=== PATIENT | female | born 1980 | race Two or more races ===

== ENCOUNTER 2017-07-09 15:37 | Emergency (ER) | payer OTHER, MEDICAID ==
[~2017-07-09] VITALS: Ht 182.9 cm; Wt 84.0 kg
[~2017-07-09 15:37] MED LIST: ALBU18HF2 IH
[2017-07-09 16:04] VITALS: BP 122/75
[2017-07-09 16:43] LABS: BASOPHILS % 0.7 % (0.0-2.0); EOSINOPHILS % 3.6 % (0.0-5.0); HEMATOCRIT. 30.6 % (36.0-48.0); HEMOGLOBIN. 9.6 g/dL (12.0-16.0); LYMPHOCYTES % 19.1 % (20.0-50.0); MEAN CORPUSCULAR HEMOGLOBIN 21.6 pg (28.0-32.0); MEAN CORPUSCULAR VOLUME 68.5 fL (81.0-99.0); MEAN PLATELET VOLUME 12.3 fl (7.4-10.4); MONOCYTES % 6.5 % (2.0-8.0); NEUTROPHILS % 70.1 % (40.0-76.0); PLATELET 163 x1000/uL (130-400); RED BLOOD CELL COUNT 4.47 mill/uL (4.2-5.4); RED CELL DISTRIBUTION WIDTH 15.2 % (11.6-14.6)
[2017-07-09 17:16] LABS: PLATELET ESTIMATE NORMAL
== END 2017-07-09 17:47 | disposition home or self-care (01) ==
LOC: ER 15:58
DX: N93.8 Other specified abnormal uterine and vaginal bleeding (principal); D64.9 Anemia, unspecified; D25.9 Leiomyoma of uterus, unspecified; J45.909 Unspecified asthma, uncomplicated
CPT/HCPCS: 36415; 81025; 85025; 99283

== ENCOUNTER 2017-09-09 15:57 | Emergency (ER) | payer OTHER, MEDICAID ==
[~2017-09-09] VITALS: Ht 180.3 cm; Wt 84.0 kg
[2017-09-09 16:34] VITALS: BP 110/74
== END 2017-09-10 01:44 | disposition left against medical advice (07) ==
LOC: ER 15:57
DX: R42 Dizziness and giddiness (principal); Z53.21 Procedure and treatment not carried out due to patient leaving prior to being seen by health care provider